=== PATIENT | male | born 1975 | race Native Hawaiian/Other Pacific Islander ===

== ENCOUNTER 2017-02-24 10:16 | Emergency (ER) | payer OTHER ==
[~2017-02-24] VITALS: Ht 185.4 cm; Wt 95.3 kg
[2017-02-24] MEDS ORDERED: ASPIRIN325 M1 OR (10:23)
[2017-02-24 10:41] LABS: PLATELET COUNT 331 K/uL (142-355)
[2017-02-24 10:50] LABS: POTASSIUM 4.3 mmol/L (3.6-5.2); SODIUM 135 mmol/L (136-145)
== END 2017-02-24 12:33 | disposition home or self-care (01) ==
LOC: ED 10:16
DX: R07.89 Other chest pain (principal); R09.1 Pleurisy; J18.9 Pneumonia, unspecified organism
CPT/HCPCS: 80053; 80307; 81000; 85027; 96365; 96375; 99284; G0479; J1885

== ENCOUNTER 2017-04-20 10:24 | Observation (INO) | payer OTHER ==
[~2017-04-20] VITALS: Ht 185.4 cm; Wt 91.3 kg
[~2017-04-20 10:24] MED LIST: ASPIRIN325 M1 OR
[2017-04-20 12:22] VITALS: BP 107/72; TEMP 97.6; Ht 185.4 cm; Wt 91.3 kg
[2017-04-20 12:40] LABS: PLATELET COUNT 388 K/uL (142-355)
[2017-04-20 12:55] LABS: POTASSIUM 3.9 mmol/L (3.6-5.2); SODIUM 129 mmol/L (136-145)
[2017-04-20 16:00] VITALS: BP 114/71; TEMP 98.5
[2017-04-20 20:00] VITALS: BP 114/62; TEMP 98.2
[2017-04-21] VITALS: BP 100/66; TEMP 98.2
[2017-04-21 04:00] VITALS: BP 100/62; TEMP 98.1
[2017-04-21 05:04] LABS: PLATELET COUNT 358 K/uL (142-355)
[2017-04-21 05:44] LABS: POTASSIUM 3.6 mmol/L (3.6-5.2)
[2017-04-21 08:00] VITALS: BP 109/66; TEMP 98.7
[2017-04-21 12:00] VITALS: BP 109/66; TEMP 97.7
[2017-04-21 16:00] VITALS: BP 115/67; TEMP 98.3
[2017-04-21 20:00] VITALS: BP 101/62; TEMP 98.5
[2017-04-22] VITALS: BP 182/70; TEMP 98.2
[2017-04-22 04:00] VITALS: BP 113/81; TEMP 98.1
[2017-04-22 08:00] VITALS: BP 110/73; TEMP 98.2
[2017-04-22 12:00] VITALS: BP 114/70; TEMP 98
== END 2017-04-22 16:27 | disposition home or self-care (01) ==
LOC: US 10:24 → MED/SURG 11:00
PROVIDERS: Internal Medicine; ADMIT Nurse Practitioner
DX: I82.411 Acute embolism and thrombosis of right femoral vein (principal); I83.893 Varicose veins of bilateral lower extremities with other complications; Z91.14 Patient's other noncompliance with medication regimen; Z79.01 Long term (current) use of anticoagulants
CPT/HCPCS: 36591; 80053; 85027; 85610; 93005; 96372; 99220; G0378; J1650

== ENCOUNTER 2017-07-02 18:13 | Outpatient (CLI) | payer OTHER | END 2017-07-02 19:15 | disposition home or self-care (01) | LOC: US 18:13 | DX: R60.0 Localized edema (principal) ==

== ENCOUNTER 2018-01-03 14:21 | Outpatient (CLI) | payer OTHER ==
[2018-01-03 18:26] LABS: PLATELET COUNT 125 K/uL (142-355)
[2018-01-03] MEDS ORDERED: WARF5TAB6 PO (20:06)
== END 2018-01-03 20:46 | disposition home or self-care (01) ==
LOC: LABW 14:21
PROVIDERS: Internal Medicine
DX: I82.411 Acute embolism and thrombosis of right femoral vein (principal); D68.9 Coagulation defect, unspecified
CPT/HCPCS: 36415; 81000; 85027; 85379; 85610; Q9963

== ENCOUNTER 2018-01-03 19:49 | Inpatient (IN) | payer OTHER ==
[~2018-01-03] VITALS: Ht 185.4 cm; Wt 92.1 kg
[2018-01-03 19:57] VITALS: BP 139/90; TEMP 97.7
[2018-01-03] MEDS ORDERED: WARF5TAB6 PO (20:06)
[2018-01-03 21:25] VITALS: BP 133/86; TEMP 98.1
[2018-01-03 21:35] LABS: PLATELET COUNT 150 K/uL (142-355)
[2018-01-03 21:43] LABS: POTASSIUM 4.1 mmol/L (3.6-5.2)
[2018-01-03 22:34] VITALS: BP 138/87; TEMP 97.9
[2018-01-03 23:15] VITALS: BP 135/84; TEMP 97.7
[2018-01-04 02:44] VITALS: BP 127/87; Ht 185.4 cm; Wt 92.1 kg
[2018-01-04 04:00] VITALS: BP 111/80; TEMP 98.1
[2018-01-04 08:00] VITALS: BP 116/71; TEMP 98.2
[2018-01-04 12:00] VITALS: BP 116/68; TEMP 98.1
[2018-01-04 16:00] VITALS: BP 118/77; TEMP 98.6
[2018-01-04 20:00] VITALS: BP 118/87; TEMP 97.8
[2018-01-05] VITALS: BP 119/68; TEMP 97.9
[2018-01-05 04:00] VITALS: BP 119/66; TEMP 98.1
[2018-01-05 08:00] VITALS: BP 114/79; TEMP 98
[2018-01-05 11:56] VITALS: BP 136/95; TEMP 97.6
[2018-01-05 16:57] VITALS: BP 137/94; TEMP 97.9
[2018-01-05 20:00] VITALS: BP 123/87; TEMP 97.8
[2018-01-06] VITALS: BP 116/77; TEMP 98.2
[2018-01-06 04:00] VITALS: BP 116/71; TEMP 98.5
[2018-01-06 05:43] LABS: POTASSIUM 3.7 mmol/L (3.6-5.2)
[2018-01-06 05:48] LABS: PLATELET COUNT 114 K/uL (142-355)
[2018-01-06 08:00] VITALS: BP 119/76; TEMP 98.4
== END 2018-01-06 11:50 | disposition home or self-care (01) | DRG 176 ==
LOC: ED 19:49 → MED/SURG 22:37
PROVIDERS: Internal Medicine; ADMIT Specialist
DX: I26.99 Other pulmonary embolism without acute cor pulmonale (principal); I82.402 Acute embolism and thrombosis of unspecified deep veins of left lower extremity; D64.89 Other specified anemias; Z86.711 Personal history of pulmonary embolism; M25.511 Pain in right shoulder; R79.1 Abnormal coagulation profile
CPT/HCPCS: 36415; 36600; 80048; 80053; 81000; 82272; 82805; 83010; 83735; 83880; 84100; 84443; 84484; 85007; 85014; 85018; 85027; 85220; 85300; 85302; 85305; 85362; 85379; 85384; 85610; 86039; 86850; 86900; 86901; 86922; 99284; J3490; P9016; Q9963

== ENCOUNTER 2018-01-13 22:34 | Inpatient (IN) | payer OTHER ==
[~2018-01-13] VITALS: Ht 185.4 cm; Wt 92.6 kg
[~2018-01-13 22:34] MED LIST changes: +WARF5TAB6 PO
[2018-01-13 22:37] VITALS: BP 146/96; TEMP 98.3
[2018-01-13] MEDS ORDERED: ELIQUIS5 MG PO (23:06)
[2018-01-13] MEDS ORDERED: UNITH DIRECT50 MCG PO (23:07)
[2018-01-13] MEDS ORDERED: PANTOPRAZOLE 40MG TA PO (23:07)
[2018-01-13 23:15] VITALS: BP 130/92
[2018-01-13 23:21] LABS: PLATELET COUNT 148 K/uL (142-355)
[2018-01-13 23:31] LABS: POTASSIUM 3.9 mmol/L (3.6-5.2); SODIUM 130 mmol/L (136-145)
[2018-01-13 23:45] VITALS: BP 131/90
[2018-01-14] VITALS (9 sets, daily range): BP systolic 118–148; BP diastolic 78–96; TEMP 97.8–98.6; Ht 185.4 cm; Wt 92.6 kg
--- NOTE | 2018-01-14 06:29 | NUR ---
0330: RECEIVED PT TO ROOM 1110 FROM ER. PT ARRIVED BY WHEELCHAIR ACCOMPANIED BY SIGNIFICANT OTHER. PT BEING ADMITTED WITH CHOLECYSTITIS. PT ALERT AND ORIENTED DENIES PAIN, STATED "I'M JUST UNCOMFORTABLE."
--- NOTE | 2018-01-14 10:20 | NUR ---
[facility] CALLED FOR ROOM ASSIGNMENT. PT WILL BE GOING TO ROOM 529 ON THE MEDICAL FLOOR.
--- NOTE | 2018-01-14 12:15 | NUR ---
REPORT CALLED TO GRACIELA LOMAX RN. ALL VITAL INFORMATION PERAINING TO THE PATIENT GIVEN TO NURSE. ZAKI OWENS UNDERSTOOD ALL INFORMATION.
== END 2018-01-14 14:04 | disposition short-term general hospital (02) | DRG 445 ==
LOC: ED 22:34 → MED/SURG 01-14 02:30
PROVIDERS: ADMIT Emergency Medicine
DX: K81.0 Acute cholecystitis (principal); D68.59 Other primary thrombophilia; Z80.7 Family history of other malignant neoplasms of lymphoid, hematopoietic and related tissues; E03.8 Other specified hypothyroidism; D64.89 Other specified anemias; Z79.01 Long term (current) use of anticoagulants; M25.511 Pain in right shoulder; Z86.711 Personal history of pulmonary embolism
CPT/HCPCS: 36415; 80053; 82550; 82553; 84484; 85027; 96365; 96375; 99284; J0696; J2405; J3490

== ENCOUNTER 2021-03-28 06:03 | Emergency (ER) | payer OTHER ==
[~2021-03-28] VITALS: Ht 185.4 cm; Wt 103.9 kg
[~2021-03-28 06:03] MED LIST changes: +ELIQUIS5 MG PO; +PANTOPRAZOLE 40MG TA PO; +UNITH DIRECT50 MCG PO
[2021-03-28 06:08] VITALS: TEMP 98.2
[2021-03-28 06:35] LABS: PLATELET COUNT 359 K/uL (142-355)
[2021-03-28 06:54] LABS: POTASSIUM 4.3 mmol/L (3.6-5.2); SODIUM 142 mmol/L (136-145)
[2021-03-28 07:26] LABS: PARTIAL THROMBOPLASTIN TIME 39.2 SECONDS (24.5-33.6)
[2021-03-28 07:57] VITALS: BP 123/85
== END 2021-03-28 07:57 | disposition home or self-care (01) ==
LOC: ED 06:03
PROVIDERS: Hospitalist
DX: K21.9 Gastro-esophageal reflux disease without esophagitis (principal); R07.89 Other chest pain; K80.20 Calculus of gallbladder without cholecystitis without obstruction
CPT/HCPCS: 36415; 80053; 82550; 83880; 84484; 85027; 85610; 85730; 93005; 96374; 96375; 99284; J1170; J2405; Q9963

== ENCOUNTER 2021-06-18 08:30 | Emergency (ER) | payer OTHER ==
[~2021-06-18] VITALS: Ht 185.4 cm; Wt 102.1 kg
[2021-06-18 09:28] VITALS: BP 141/94
== END 2021-06-18 09:28 | disposition home or self-care (01) ==
LOC: ED 08:30
DX: K81.9 Cholecystitis, unspecified (principal)
CPT/HCPCS: 99282

== ENCOUNTER 2021-06-21 13:07 | Outpatient (CLI) | payer OTHER ==
[2021-06-21 13:27] LABS: PLATELET COUNT 209 K/uL (142-355)
[2021-06-21 13:54] LABS: POTASSIUM 3.8 mmol/L (3.6-5.2)
== END 2021-06-21 19:05 | disposition home or self-care (01) ==
LOC: LAB 13:07
PROVIDERS: ATTEND Internal Medicine
DX: Z00.00 Encounter for general adult medical examination without abnormal findings (principal); E03.8 Other specified hypothyroidism; Z79.899 Other long term (current) drug therapy; Z12.5 Encounter for screening for malignant neoplasm of prostate; N40.0 Benign prostatic hyperplasia without lower urinary tract symptoms
CPT/HCPCS: 80053; 80061; 81000; 84153; 84439; 84443; 85027

== ENCOUNTER 2022-04-29 23:13 | Emergency (ER) | payer OTHER ==
[~2022-04-29] VITALS: Ht 185.4 cm; Wt 102.1 kg
[2022-04-29] MEDS ORDERED: FLUOXETINE10 MG PO (23:37)
[2022-04-29] MEDS ORDERED: ACYCLOVIR (23:38)
[2022-04-29] MEDS ORDERED: REVLIMID (23:40)
[2022-04-30 00:04] LABS: PLATELET COUNT 264 K/uL (142-355)
[2022-04-30 00:20] LABS: POTASSIUM 3.8 mmol/L (3.6-5.2)
[2022-04-30 02:35] VITALS: BP 114/74; TEMP 97.9
== END 2022-04-30 02:35 | disposition home or self-care (01) ==
LOC: ED 23:13
PROVIDERS: Family Medicine
DX: R10.31 Right lower quadrant pain (principal); N20.0 Calculus of kidney
CPT/HCPCS: 36415; 80053; 81000; 82150; 83690; 85007; 85027; 96374; 99284; J1885